=== PATIENT | male | born 1945 | race Two or more races ===

== ENCOUNTER 2024-06-16 08:06 | Emergency (ER) | payer BC ==
[~2024-06-16] VITALS: Ht 182.9 cm; Wt 116.1 kg
[2024-06-16] MEDS ORDERED: PROPOFOL 20 ML IV ONE (08:54)
[2024-06-16] MEDS: KETAMINE HCL(200MG/20ML) 10 MG/ML VIAL IV ONE (09:00)
[2024-06-16] MEDS: PROPOFOL 200 MG/20 ML VIAL IV ONE (09:00)
[2024-06-16] MEDS ORDERED: HYDR-3980 PO (10:35)
[2024-06-16 11:14] VITALS: BP 126/73; TEMP 98.4; O2SAT 97
== END 2024-06-16 11:14 | disposition home or self-care (01) ==
LOC: ER 08:14
DX: S82.832A Other fracture of upper and lower end of left fibula, initial encounter for closed fracture (principal); N40.0 Benign prostatic hyperplasia without lower urinary tract symptoms; I10 Essential (primary) hypertension; F32.A Depression, unspecified; Z96.653 Presence of artificial knee joint, bilateral; Z95.5 Presence of coronary angioplasty implant and graft; W01.0XXA Fall on same level from slipping, tripping and stumbling without subsequent striking against object, initial encounter; Y93.89 Activity, other specified; Y92.89 Other specified places as the place of occurrence of the external cause; Y99.8 Other external cause status
CPT/HCPCS: 99285; 27840; 99152; 73600 ×2; J2704; J7030; G0500

== ENCOUNTER 2024-06-24 15:03 | Inpatient (IN) | payer BC ==
[~2024-06-24] VITALS: Ht 182.9 cm; Wt 116.3 kg
[~2024-06-24 15:03] MED LIST: HYDR-3980 PO
[2024-06-24 15:25] VITALS: O2SAT 99
[2024-06-24] MEDS: PIPERACILLIN /TAZOBACTAM 3.375 G in IV D5W 50 ML IV ONE (15:58)
[2024-06-24 16:10] LABS: BASOPHILS # (AUTO) 0.1 K/uL (0.0-0.2); BASOPHILS % (AUTO) 0.9 % (0.0-2.0); EOSINOPHILS # (AUTO) 0.1 K/uL (0.0-0.7); EOSINOPHILS % (AUTO) 1.6 % (0.0-6.0); HEMATOCRIT 38 % (39-51); HEMOGLOBIN 12.9 g/dL (13.5-17.5); LYMPHOCYTES # (AUTO) 1.7 K/uL (0.8-4.8); LYMPHOCYTES % (AUTO) 19.2 % (20.0-44.0); MEAN CORPUSCULAR HEMOGLOBIN 31 PG (26.0-33.0); MEAN CORPUSCULAR HGB CONC 34 g/dl (31.0-36.0); MEAN CORPUSCULAR VOLUME 90 fL (80-96); MONOCYTES # (AUTO) 0.6 K/uL (0.1-1.30); MONOCYTES % (AUTO) 6.5 % (2.0-12.0); NEUTROPHILS # (AUTO) 6.4 K/uL (1.8-8.9); NEUTROPHILS % (AUTO) 71.8 % (43.0-81.0); PLATELET COUNT (AUTO) 344 K/uL (150-450); RED BLOOD CELL COUNT(AUTO) 4.23 MIL/uL (4.5-6.0); RED CELL DISTRIBUTION WIDTH 14.6 % (11.5-15.0); WHITE BLOOD COUNT (AUTO) 8.8 K/uL (4.3-11.0)
[2024-06-24 16:25] LABS: INR 1.05 (0.91-1.10); PARTIAL THROMBOPLASTIN TIME 33.5 SEC (24.3-34.3); PROTHROMBIN TIME 11.1 SECS (9.2-11.1)
[2024-06-24 16:35] LABS: CALCIUM, SERUM 9.1 mg/dL (8.5-10.1)
[2024-06-24] MEDS: VANCOMYCIN 1 GM in IV D5W 250 ML IV ONE (16:40)
[2024-06-24 16:41] LABS: ALBUMIN 3.4 g/dL (3.4-5.0); BILIRUBIN,DIRECT 0.4 mg/dL (0.0-0.2); BILIRUBIN,TOTAL 1.4 mg/dL (0.2-1.0); TOTAL PROTEIN, SERUM 7.4 g/dL (6.4-8.2)
[2024-06-24] MEDS: MORPHINE SULFATE INJ 2 MG/ML DISP.SYRIN IV ONE (16:44)
[2024-06-24] MEDS ORDERED: MORPHINE SULFATE INJ 4 MG/ML DISP.SYRIN ONE (16:47)
[2024-06-24 16:55] LABS: LACTIC ACID 1.6 mmol/L (0.4-2.0)
[2024-06-24] MEDS ORDERED: IOHEXOL-300 100 ML VIAL IV ONE (17:59)
[2024-06-24] MEDS ORDERED: IV NS 0.9% 250 ML IV ONE (17:59)
[2024-06-24] MEDS ORDERED: MORPHINE SULFATE INJ 2 MG/ML DISP.SYRIN IV ONE ×2 (21:00→21:30)
[2024-06-24] MEDS ORDERED: ACETAMINOPHEN 325 MG TABLET PO PRN (22:00)
[2024-06-24] MEDS ORDERED: MORPHINE SULFATE INJ 2 MG/ML DISP.SYRIN IV PRN (22:00)
[2024-06-24] MEDS ORDERED: ONDANSETRON HCL/PF 4 MG/2 ML VIAL IVP PRN (22:00)
[2024-06-24] MEDS: IV NS 0.9% 1,000 ML IV PRN (22:48)
[2024-06-24 23:00] VITALS: BP 119/68; TEMP 98.4; O2SAT 95
[2024-06-24] MEDS: HYDROCODONE/APAP 10/325MG TABLET PO PRN (23:34)
[2024-06-25] MEDS ORDERED: PIPERACI/TAZO 3.375GM/D5W 50ML PB IV ONE (04:34)
[2024-06-25] MEDS: PIPERACILLIN /TAZOBACTAM 3.375 G in IV D5W 50 ML IV SCH (05:25)
[2024-06-25 06:49] LABS: BASOPHILS % (AUTO) 0.7 % (0.0-2.0); EOSINOPHILS # (AUTO) 0.2 K/uL (0.0-0.7); EOSINOPHILS % (AUTO) 3.2 % (0.0-6.0); HEMATOCRIT 33 % (39-51); HEMOGLOBIN 11.4 g/dL (13.5-17.5); LYMPHOCYTES # (AUTO) 1.5 K/uL (0.8-4.8); LYMPHOCYTES % (AUTO) 23.1 % (20.0-44.0); MEAN CORPUSCULAR HEMOGLOBIN 30 PG (26.0-33.0); MEAN CORPUSCULAR HGB CONC 34 g/dl (31.0-36.0); MEAN CORPUSCULAR VOLUME 88 fL (80-96); MONOCYTES # (AUTO) 0.5 K/uL (0.1-1.30); MONOCYTES % (AUTO) 8.5 % (2.0-12.0); NEUTROPHILS # (AUTO) 4.1 K/uL (1.8-8.9); NEUTROPHILS % (AUTO) 64.5 % (43.0-81.0); PLATELET COUNT (AUTO) 325 K/uL (150-450); RED BLOOD CELL COUNT(AUTO) 3.76 MIL/uL (4.5-6.0); RED CELL DISTRIBUTION WIDTH 13.9 % (11.5-15.0); WHITE BLOOD COUNT (AUTO) 6.3 K/uL (4.3-11.0)
[2024-06-25] MEDS ORDERED: VANCOMYCIN 1 GM /D5W 250 ML PB IV ONE (06:53)
[2024-06-25] MEDS: VANCOMYCIN 1 GM in IV D5W 250ml IV SCH (06:55)
[2024-06-25 07:12] LABS: CALCIUM, SERUM 8.1 mg/dL (8.5-10.1); CREATININE 0.9 mg/dL (0.6-1.3); MAGNESIUM 2.1 mg/dL (1.8-2.4); PHOSPHORUS 3.5 mg/dL (2.5-4.9); POTASSIUM 3.4 mmol/L (3.5-5.1)
[2024-06-25] MEDS: ENOXAPARIN SODIUM 40 MG/0.4 ML DISP.SYRIN SQ SCH (08:24)
[2024-06-25 08:31] VITALS: BP 148/78; TEMP 98; O2SAT 97
[2024-06-25] MEDS ORDERED: ATOR20TA PO (08:51)
[2024-06-25] MEDS ORDERED: LISI20TA30 PO (08:51)
[2024-06-25] MEDS ORDERED: BUSP5TAB3 PO (08:51)
[2024-06-25] MEDS ORDERED: TAMS-12 PO (08:51)
[2024-06-25] MEDS ORDERED: ASPI-1169 PO (08:51)
[2024-06-25] MEDS ORDERED: DUTA0.5C37 PO (08:51)
[2024-06-25] MEDS ORDERED: BREX2TAB PO (08:51)
[2024-06-25] MEDS ORDERED: LAMO200T2 PO (08:51)
[2024-06-25] MEDS: POTASSIUM CHLORIDE 20 MEQ TAB.PRT.SR PO SCH (10:46)
== END 2024-06-25 15:06 | disposition left against medical advice (07) | DRG 603 ==
LOC: ER 15:06 → MED 21:43
PROVIDERS: ADMIT Nurse Practitioner Acute Care; ATTEND Internal Medicine
DX: L03.116 Cellulitis of left lower limb (principal); S82.852A Displaced trimalleolar fracture of left lower leg, initial encounter for closed fracture; I10 Essential (primary) hypertension; D64.9 Anemia, unspecified; F32.A Depression, unspecified; Z96.653 Presence of artificial knee joint, bilateral; Z95.5 Presence of coronary angioplasty implant and graft; N40.0 Benign prostatic hyperplasia without lower urinary tract symptoms; I87.8 Other specified disorders of veins; S82.62XA Displaced fracture of lateral malleolus of left fibula, initial encounter for closed fracture; S92.122A Displaced fracture of body of left talus, initial encounter for closed fracture; W01.0XXA Fall on same level from slipping, tripping and stumbling without subsequent striking against object, initial encounter; Y92.9 Unspecified place or not applicable; S80.822A Blister (nonthermal), left lower leg, initial encounter; E80.6 Other disorders of bilirubin metabolism; Z53.21 Procedure and treatment not carried out due to patient leaving prior to being seen by health care provider
CPT/HCPCS: 36415; 73701-TC; 80048-TC; 80076-TC; 83605-TC; 83735-TC; 84100-TC; 85025-TC; 85730-TC; 87040-TC; A4223; G0378; J1650; J2270; J2543; J3370; J7030; J7050; J7060; Q9967